=== PATIENT | male | born 1985 | race Caucasian/White ===

== ENCOUNTER 2024-07-12 13:42 | Inpatient (IN) | payer BC ==
[2024-07-12] MEDS ORDERED: Sodium Chloride 0.9% 10 ML Syringe FLUSH PRN (14:27)
[2024-07-12 15:20] LABS: HEMOGLOBIN 16.7 g/dL (14.0-18.0); MEAN CORPUSCULAR HEMOGLOBIN 32.2 pg (28.0-32.0); MEAN CORPUSCULAR HGB CONC 34.8 g/dL (32.0-36.0); MEAN CORPUSCULAR VOLUME 92.5 fL (83.0-99.0); MEAN PLATELET VOLUME 9.2 fL (9.4-12.4); PLATELET COUNT,PLT 250 K/uL (150-400); RED BLOOD CELL COUNT 5.19 M/uL (4.52-5.90); WHITE BLOOD CELL COUNT,WBC 22.52 K/uL (3.9-11.3)
[2024-07-12 15:44] LABS: A/G RATIO 0.8 (0.9-1.6); ALBUMIN 3.4 g/dL (3.4-5.0); BILIRUBIN TOTAL 0.7 mg/dL (0.2-1.0); CALCIUM 9.6 mg/dL (8.5-10.1); CARBON DIOXIDE,CO2 20.8 mmol/L (21.0-32.0); CREATININE 1.2 mg/dL (0.8-1.3); EST CRCL DRUG DOSING (CG) 85.34 mL/min; POTASSIUM,K 4.3 mmol/L (3.5-5.1); PROTEIN TOTAL,TP 7.5 g/dL (6.4-8.2)
[2024-07-12] MEDS ORDERED: Naloxone 0.4 MG/ML SDV IVPUSH PRN (15:56)
[2024-07-12] MEDS: HYDROmorphone 1 MG/ML Syringe IVPUSH ONE (16:17)
[2024-07-12] MEDS: ceFAZolin 2 GM in Sodium Chloride 0.9% 50 ML IV ONE (16:17)
[2024-07-12 16:20] LABS: LYMPHOCYTES ABSOLUTE MAN 1.13 K/uL (1.00-4.80); LYMPHOCYTES PERCENT MAN 5 % (24-44); MONOCYTES ABSOLUTE MAN 1.58 K/uL (0.00-0.80); MONOCYTES PERCENT MAN 7 % (0-8); SEG NEUTROPHILS ABSOLUTE MAN 19.82 K/uL (1.80-7.70); SEG NEUTROPHILS PERCENT MAN 88 % (41-71)
[2024-07-12] MEDS: Lidocaine 1% with EPINEPHrine 1:100,000 10 ML MDV INJECT ONE (17:08)
[2024-07-12] MEDS: Iopamidol 755 MG/ML 500 ML Multipack Bottle IVPUSH STA (18:57)
[2024-07-12] MEDS ORDERED: 50% Dextrose in Water 50 ML Syringe IVPUSH PRN ×2 (19:51→23:15)
[2024-07-12] MEDS ORDERED: Glucagon,Human Recombinant 1 MG Vial IM PRN ×2 (19:51→23:15)
[2024-07-12] MEDS ORDERED: VANCOmycin 2 GM/400 ML 2 GM in Premix Bag 1 BAG IV ONE (20:00)
[2024-07-12] MEDS: VANCOmycin 2 GM/400 ML 2 GM in Premix Bag 1 BAG IV ONE (20:40)
[2024-07-12] MEDS: Insulin Regular, Human 100 Units/ML 10 ML Vial SUBCUT ONE (20:46)
[2024-07-12] MEDS: Insulin Regular, Human 100 Units/ML 10 ML Vial ONE (20:51)
[2024-07-12] MEDS: Sodium Chloride 0.9% 1,000 ML IV SCH (20:57)
[2024-07-13] MEDS: Losartan 50 MG Tab PO ONE (00:02)
[2024-07-13] MEDS: Acetaminophen 325 MG Tab PO PRN (00:03)
[2024-07-13] MEDS: Sodium Chloride 0.9% 1,000 ML IV SCH (03:32)
[2024-07-13] MEDS: cefTRIAXone 2 GM in Sodium Chloride 0.9% 50 ML IV SCH (03:33)
[2024-07-13 05:47] LABS: BASOPHILS ABSOLUTE AUTO 0.05 K/uL (0.00-0.20); BASOPHILS PERCENT AUTO 0.3 % (0.0-1.0); EOSINOPHILS ABSOLUTE AUTO 0.02 K/uL (0.00-0.45); EOSINOPHILS PERCENT AUTO 0.1 % (0.0-6.0); HEMATOCRIT 43.7 % (42.0-52.0); HEMOGLOBIN 15.2 g/dL (14.0-18.0); IMMATURE GRAN PERCENT AUTO 0.6 % (0.0-0.4); LYMPHOCYTES ABSOLUTE AUTO 1.17 K/uL (1.00-4.80); LYMPHOCYTES PERCENT AUTO 7.3 % (24.0-44.0); MEAN CORPUSCULAR HEMOGLOBIN 32.4 pg (28.0-32.0); MEAN CORPUSCULAR HGB CONC 34.8 g/dL (32.0-36.0); MEAN CORPUSCULAR VOLUME 93.2 fL (83.0-99.0); MEAN PLATELET VOLUME 9.4 fL (9.4-12.4); MONOCYTES ABSOLUTE AUTO 1.38 K/uL (0.00-0.80); MONOCYTES PERCENT AUTO 8.6 % (0.0-8.0); NEUTROPHILS ABSOLUTE AUTO 13.34 K/uL (1.80-7.70); NEUTROPHILS PERCENT AUTO 83.1 % (41.0-71.0); PLATELET COUNT,PLT 237 K/uL (150-400); RED BLOOD CELL COUNT 4.69 M/uL (4.52-5.90); WHITE BLOOD CELL COUNT,WBC 16.06 K/uL (3.9-11.3)
[2024-07-13 06:06] LABS: CALCIUM 8.6 mg/dL (8.5-10.1); CARBON DIOXIDE,CO2 21.1 mmol/L (21.0-32.0); EST CRCL DRUG DOSING (CG) 99.18 mL/min; POTASSIUM,K 3.8 mmol/L (3.5-5.1)
[2024-07-13] MEDS: Ondansetron 4 MG/2 ML SDV IVPUSH PRN (07:00)
[2024-07-13] MEDS: HYDROmorphone 1 MG/ML Syringe IVPUSH PRN (07:02)
[2024-07-13] MEDS: Insulin Aspart 100 Units/ML 3 ML Pen SUBCUT SCH (08:41)
[2024-07-13] MEDS ORDERED: VANCOmycin 1.5 GM in Sodium Chloride 0.9% 250 ML IV SCH (10:00)
[2024-07-13] MEDS: VANCOmycin 1.5 GM in Sodium Chloride 0.9% 250 ML IV SCH (11:07)
[2024-07-13] MEDS: Lactated Ringers 1,000 ML IV SCH (14:09)
[2024-07-13] MEDS ORDERED: fentaNYL 100 MCG/2 ML SDV ONE (15:06)
[2024-07-13] MEDS ORDERED: Midazolam 1 MG/ML 2 ML SDV ONE (15:06)
[2024-07-13] MEDS ORDERED: Propofol 200 MG/20 ML SDV ONE (15:06)
[2024-07-13] MEDS ORDERED: Lidocaine 2% 5 ML SDV ONE (15:07)
[2024-07-13] MEDS ORDERED: Ondansetron 4 MG/2 ML SDV ONE (15:07)
[2024-07-13] MEDS ORDERED: Bupivacaine 0.5% 30 ML SDV ONE (15:30)
[2024-07-13] MEDS ORDERED: HYDROmorphone 1 MG/ML Syringe ONE (16:21)
[2024-07-13] MEDS ORDERED: Ketorolac 30 MG/ML SDV ONE (16:23)
[2024-07-13] MEDS: HYDROmorphone 1 MG/ML Syringe ONE (17:10)
[2024-07-13] MEDS: HYDROmorphone 0.5 MG/0.5 ML Syringe IVPUSH PRN (17:10)
[2024-07-13] MEDS: HYDROmorphone 1 MG/ML Syringe IVPUSH ONE (19:22)
[2024-07-13] MEDS: Piperacillin/Tazobactam 4.5 GM in Sodium Chloride 0.9% 100 ML IV ONE (19:45)
[2024-07-13] MEDS: Acetaminophen/oxyCODONE 325-5 MG Tab PO PRN (19:55)
[2024-07-13] MEDS: Clindamycin Phosphate in D5W 600 MG in Premix Bag 1 BAG IV SCH ×2 (20:31→21:07)
[2024-07-13] MEDS ORDERED: Piperacillin/Tazobactam 4.5 GM in Sodium Chloride 0.9% 100 ML IV SCH (21:30)
[2024-07-13] MEDS: Piperacillin/Tazobactam 4.5 GM in Sodium Chloride 0.9% 100 ML IV SCH (23:46)
[2024-07-14] MEDS: Ketorolac 30 MG/ML SDV IVPUSH PRN (04:02)
[2024-07-14 05:54] LABS: HEMATOCRIT 40.6 % (42.0-52.0); MEAN CORPUSCULAR HEMOGLOBIN 32.6 pg (28.0-32.0); MEAN CORPUSCULAR HGB CONC 34.5 g/dL (32.0-36.0); MEAN CORPUSCULAR VOLUME 94.4 fL (83.0-99.0); MEAN PLATELET VOLUME 8.8 fL (9.4-12.4); PLATELET COUNT,PLT 213 K/uL (150-400); WHITE BLOOD CELL COUNT,WBC 14.07 K/uL (3.9-11.3)
[2024-07-14 06:33] LABS: CALCIUM 8.4 mg/dL (8.5-10.1); CARBON DIOXIDE,CO2 24.6 mmol/L (21.0-32.0); EST CRCL DRUG DOSING (CG) 99.18 mL/min; POTASSIUM,K 3.7 mmol/L (3.5-5.1)
[2024-07-14] MEDS: Sodium Chloride 0.9% 100 ML ONE (09:15)
== END 2024-07-14 10:45 | DRG 364 ==
LOC: MW.ED 13:42 → MW.MS 19:45
PROVIDERS: ADMIT Internal Medicine; ATTEND Internal Medicine
PROC: 0J9M0ZZ Drainage of Left Upper Leg Subcutaneous Tissue and Fascia, Open Approach (ICD-10-PCS; principal; 2024-07-13 16:00)
DX: L02.416 Cutaneous abscess of left lower limb (principal); Z68.41 Body mass index [BMI] 40.0-44.9, adult; L03.116 Cellulitis of left lower limb; E11.9 Type 2 diabetes mellitus without complications; F17.210 Nicotine dependence, cigarettes, uncomplicated; I10 Essential (primary) hypertension; E66.9 Obesity, unspecified
CPT/HCPCS: 00400; 10060; 36415; 72192; 72192-26; 73701-26-LT; 73701-LT; 80048; 80053; 80202; 82947; 83605; 85025; 85027; 87040; 87070; 87075; 87205; 87641; 96365; 96375; 99284; 99284-25; A9270-GY; J0665; J0690; J0696; J0736; J1171; J1815-GY; J1885; J2003; J2250; J2405; J2543; J2704; J3010; J3371; J3372; J7030; J7050; J7120; Q9967

== ENCOUNTER 2024-07-23 16:05 | Emergency (ER) | payer BC ==
[2024-07-23] MEDS ORDERED: Sodium Chloride 0.9% 10 ML Syringe FLUSH PRN (17:44)
[2024-07-23] MEDS ORDERED: Sodium Chloride 0.9% 2.5 ML Syringe FLUSH PRN (17:44)
[2024-07-23 17:54] LABS: BASOPHILS PERCENT AUTO 0.9 % (0.0-1.0); EOSINOPHILS ABSOLUTE AUTO 0.12 K/uL (0.00-0.45); EOSINOPHILS PERCENT AUTO 1.1 % (0.0-6.0); HEMATOCRIT 46.7 % (42.0-52.0); HEMOGLOBIN 16.5 g/dL (14.0-18.0); IMMATURE GRAN ABSOLUTE AUTO 0.21 K/uL (0.00-0.05); IMMATURE GRAN PERCENT AUTO 1.9 % (0.0-0.4); LYMPHOCYTES ABSOLUTE AUTO 2.22 K/uL (1.00-4.80); LYMPHOCYTES PERCENT AUTO 20.5 % (24.0-44.0); MEAN CORPUSCULAR HEMOGLOBIN 32.1 pg (28.0-32.0); MEAN CORPUSCULAR HGB CONC 35.3 g/dL (32.0-36.0); MEAN CORPUSCULAR VOLUME 90.9 fL (83.0-99.0); MEAN PLATELET VOLUME 8.5 fL (9.4-12.4); MONOCYTES ABSOLUTE AUTO 0.64 K/uL (0.00-0.80); MONOCYTES PERCENT AUTO 5.9 % (0.0-8.0); NEUTROPHILS ABSOLUTE AUTO 7.52 K/uL (1.80-7.70); NEUTROPHILS PERCENT AUTO 69.7 % (41.0-71.0); PLATELET COUNT,PLT 447 K/uL (150-400); RED BLOOD CELL COUNT 5.14 M/uL (4.52-5.90); WHITE BLOOD CELL COUNT,WBC 10.81 K/uL (3.9-11.3)
[2024-07-23 18:13] LABS: A/G RATIO 0.8 (0.9-1.6); ALBUMIN 3.7 g/dL (3.4-5.0); BILIRUBIN TOTAL 0.4 mg/dL (0.2-1.0); CALCIUM 9.7 mg/dL (8.5-10.1); CARBON DIOXIDE,CO2 24.5 mmol/L (21.0-32.0); CREATININE 1.1 mg/dL (0.8-1.3); EST CRCL DRUG DOSING (CG) 92.17 mL/min; MAGNESIUM 2.1 mg/dL (1.8-2.4); POTASSIUM,K 3.8 mmol/L (3.5-5.1); PROTEIN TOTAL,TP 8.2 g/dL (6.4-8.2)
[2024-07-23] MEDS: Sodium Chloride 0.9% 1,000 ML IV ONE (18:15)
[2024-07-23] MEDS: Iopamidol 755 MG/ML 500 ML Multipack Bottle IVPUSH STA (19:03)
[2024-07-23] MEDS: Acetaminophen/oxyCODONE 325-5 MG Tab PO ONE (22:26)
[2024-07-23] MEDS: Lidocaine 1% 10 ML MDV INJECT ONE (22:27)
[2024-07-23] MEDS: Ondansetron 4 MG Tab.DIS PO ONE (22:27)
== END 2024-07-23 22:34 | disposition home or self-care (01) ==
LOC: MW.ED 16:05
DX: L02.416 Cutaneous abscess of left lower limb (principal); I10 Essential (primary) hypertension; E11.9 Type 2 diabetes mellitus without complications; Z86.16 Personal history of COVID-19; Z75.8 Other problems related to medical facilities and other health care; Z79.899 Other long term (current) drug therapy; Z79.84 Long term (current) use of oral hypoglycemic drugs
CPT/HCPCS: 10060; 36415; 73701; 74177; 80053; 83735; 85025; 96360; 99284; A9270; J2003; J7030; Q9967; 99283